=== PATIENT | male | born 1930 | race Caucasian/White ===

== ENCOUNTER 2020-04-26 11:56 | Observation (INO) ==
[2020-04-26] MEDS ORDERED: NS 0.9% 1000 ml BAG 1,000 ML IV ONE (11:58)
[2020-04-26 12:40] LABS: ABS Eosinophils 0.1 10^3/ul (0-0.6); ABS Lymphocytes 1.5 10^3/ul (1.0-4.8); ABS Monocytes 0.5 10^3/ul (0-0.8); Eosinophil % 2.5 %; Hematocrit 39 % (42-52); Hemoglobin 13.4 g/dL (14.0-18.0); Lymphocyte % 29.3 %; Mean Corpuscular HGB Conc 34 g/dL (31-36); Mean Corpuscular Hemoglobin 33 pg (27-31); Mean Corpuscular Volume 95 fL (80-94); Mean Platelet Volume 7.9 fL (7.4-10.4); Nucleated Red Blood Cells % 0.2; Platelet Count 234 10^3/uL (150-450); Red Blood Count 4.11 10^6 /uL (4.18-5.48); Red Cell Distribution Width 15 % (10-15); White Blood Count 5.2 10^3/uL (3.5-10.8)
[2020-04-26 12:49] LABS: ALT 12 U/L (7-52); Albumin 3.9 g/dL (3.2-5.2); Albumin/Globulin Ratio 1.3 (1-3); Alkaline Phosphatase 72 U/L (34-104); BUN/Creatinine Ratio 21.7 (8-20); Blood Urea Nitrogen 20 mg/dL (6-24); CO2 Carbon Dioxide 25 mmol/L (22-32); Chloride 107 mmol/L (101-111); Cholesterol 187 mg/dL; EGFR African American 93.9 (>60); EGFR Non-African American 77.6 (>60); Glucose 98 mg/dL (70-100); HDL Cholesterol 49.9 mg/dL; LDL Cholesterol 129 mg/dL; Sodium 136 mmol/L (135-145); Total Protein 6.9 g/dL (6.4-8.9); Triglycerides 43 mg/dL
[2020-04-26 12:55] LABS: Activated Partial Thrombo Time 32.3 seconds (26.0-38.0); INR 0.97 (0.82-1.09)
[2020-04-26 12:56] LABS: Anion Gap 4 mmol/L (2-11)
[2020-04-26 13:05] LABS: TSH (Thyroid Stimulating Horm) 1.46 mcIU/mL (0.34-5.60)
[2020-04-26 13:26] LABS: Potassium Redraw 4.3 mmol/L (3.5-5.0)
[2020-04-26 13:31] LABS: C Reactive Protein 2.12 mg/L (<8.01)
[2020-04-26 13:46] LABS: Urine Appearance Clear; Urine Bilirubin Negative (Negative); Urine Blood Negative (Negative); Urine Color Yellow; Urine Glucose Negative (Negative); Urine Ketones Negative (Negative); Urine Nitrite Negative (Negative); Urine Protein Negative (Negative); Urine Specific Gravity 1.012 (1.010-1.030); Urine Urobilinogen Negative (Negative)
[2020-04-26] MEDS ORDERED: Gadoteridol (CONTRAST) 279.3 MG/ML 10 ML IV ONE (15:06)
[2020-04-26] MEDS: NS 0.9% 1000 ml BAG 1,000 ML IV SCH (16:19)
[2020-04-26] MEDS: Heparin 5000 UNITS/ML VIAL(*) 1 ml vial SUBCUT SCH ×2 (16:20→20:25)
[2020-04-27] MEDS: Heparin 5000 UNITS/ML VIAL(*) 1 ml vial SUBCUT SCH (05:30)
[2020-04-27] MEDS: NS 0.9% 1000 ml BAG 1,000 ML IV SCH (09:39)
[2020-04-27 12:11] VITALS: BP 133/79
== END 2020-04-27 13:55 | disposition home or self-care (01) ==
LOC: MEDTELE 11:56 → ED 11:56 → MEDTELE 15:17
PROVIDERS: ADMIT Internal Medicine; ATTEND Internal Medicine